=== PATIENT | male | born 1940 | race Caucasian/White ===

== ENCOUNTER 2019-07-20 11:45 | Outpatient (CLI) | payer MEDICARE, OTHER, SELFPAY ==
[2019-07-20 13:21] LABS: Basophils Absolute Auto 0.1 K/mm3 (0.0-0.1); Basophils Percent Auto 1.1 % (0.2-1.2); Eosinophils Absolute Auto 0.3 K/mm3 (0-0.3); Eosinophils Percent Auto 3.6 % (0-4.4); Hematocrit 42.1 % (42.0-52.0); Hemoglobin 14.5 g/dL (14.0-18.0); Immature Granulocyte Absolute 0.02 K/mm3 (0.00-0.031); Immature Granulocyte Percent A 0.3 % (0-0.5); Lymphocytes Absolute Auto 1.36 K/mm3 (0.9-3.2); Lymphocytes Percent Auto 19.4 % (18.3-44.2); Mean Corpuscular HGB Conc 34.4 g/dl (32-36); Mean Platelet Volume 11.2 fl (7.4-10.4); Monocytes Absolute Auto 0.6 K/mm3 (0.1-0.6); Monocytes Percent Auto 8.7 % (2.6-8.5); Neutrophils Absolute Auto 4.7 K/mm3 (1.3-6.7); Neutrophils Percent Auto 66.9 % (45.5-73.1); Platelet Count Result 241 k/mm3 (150-375); Red Blood Count 4.84 M/mm3 (4.6-6.20)
== END 2019-07-20 11:46 | disposition home or self-care (01) ==
PROVIDERS: PCP Internal Medicine; Visit Provider Internal Medicine
DX: D64.9 Anemia, unspecified (principal)
CPT/HCPCS: 36415; 85025

== ENCOUNTER 2020-01-23 11:42 | Outpatient (CLI) | payer MEDICARE, OTHER, SELFPAY ==
[2020-01-23 12:27] LABS: Anion Gap 8 mmol/L (8-16); Blood Urea Nitrogen 20 mg/dL (9-20); Calcium 10.1 mg/dL (8.4-10.2); Carbon Dioxide 32 mmol/L (22-30); Chloride 101 mmol/L (98-107); Estimated Glomerular Filt Rate > 60; Glucose 95 mg/dL (75-110); Potassium 4.1 mmol/L (3.4-5.0); Sodium 141 mmol/L (137-145)
== END 2020-01-23 11:43 | disposition home or self-care (01) ==
PROVIDERS: PCP Internal Medicine; Visit Provider Internal Medicine
DX: I10 Essential (primary) hypertension (principal)
CPT/HCPCS: 36415; 80048

== ENCOUNTER 2020-08-30 08:43 | Outpatient (CLI) | payer MEDICARE, SELFPAY ==
--- NOTE | ~2020-08-30 | US_ITS ---
EXAMINATION: US art doppler w press LE BI DATE: 08/30/2020 09:39 INDICATION: Peripheral vascular disease. TECHNIQUE: Segmental pressures and plethysmographic and Doppler waveforms of the brachial and lower e xtremity arteries were obtained. COMPARISON: None. FINDINGS: Right and left brachial artery pressures of 139 mm Hg and 138 mm Hg, respectively, are concordant (no rmal difference <= 30 mmHg). The right and left high-thigh pressure indices are 1.07 and 0.97, respec tively (normal > 1.2). The right ankle-brachial index (TRUDY) is 1.04 (normal >= 0.9-1). The right great toe-brachial index (T BI) is 0.72 (normal >= 0.6-0.8). The right lower extremity segmental pressure gradients are increased between the right ebvgj-rgy-mvch popliteal artery and the arteries at the ankle (normal gradients <= 20-30 mmHg between adjacent levels on the same leg or the same levels on the two legs). Arterial wav eforms are biphasic with brisk systolic upstrokes throughout. The left TRUDY is 1.06. The left TBI is 0.81. The left lower extremity segmental pressure gradients are normal. Arterial waveforms biphasic with brisk systolic upstrokes throughout. IMPRESSION: 1. Normal TRUDY's and TBI's bilaterally. No significant occlusive disease. Reviewed, dictated and finalized at location A.
== END 2020-08-30 08:44 | disposition home or self-care (01) ==
PROVIDERS: PCP Internal Medicine; Visit Provider Internal Medicine
DX: I73.9 Peripheral vascular disease, unspecified (principal)
CPT/HCPCS: 93923

== ENCOUNTER 2021-01-20 10:38 | Outpatient (CLI) | payer MEDICARE, SELFPAY ==
[2021-01-20 11:06] LABS: Alanine Aminotransferase 13 U/L (4-50); Albumin Level 4.7 g/dL (3.5-5.1); Alkaline Phosphatase 55 U/L (38-126); Anion Gap 9 mmol/L (8-16); Aspartate Amino Transferase 24 U/L (17-59); Blood Urea Nitrogen 19 mg/dL (9-20); Calcium 10.1 mg/dL (8.4-10.2); Carbon Dioxide 29 mmol/L (22-30); Chloride 103 mmol/L (98-107); Estimated Glomerular Filt Rate > 60; Glucose 115 mg/dL (65-110); Potassium 3.9 mmol/L (3.4-5.0); Sodium 141 mmol/L (137-145)
== END 2021-01-20 10:39 | disposition home or self-care (01) ==
LOC: ANHLAB 10:41
PROVIDERS: PCP Internal Medicine; Visit Provider Internal Medicine
DX: I10 Essential (primary) hypertension (principal); Z79.899 Other long term (current) drug therapy
CPT/HCPCS: 36415; 80053

== ENCOUNTER 2021-08-06 08:23 | Outpatient (CLI) | payer MEDICARE, SELFPAY ==
[2021-08-06 08:52] LABS: Alanine Aminotransferase 11 U/L (4-50); Albumin Level 4.3 g/dL (3.5-5.1); Alkaline Phosphatase 59 U/L (38-126); Anion Gap 6 mmol/L (8-16); Aspartate Amino Transferase 28 U/L (17-59); Bilirubin,Total 1.1 mg/dL (0.2-1.3); Blood Urea Nitrogen 17 mg/dL (9-20); Carbon Dioxide 31 mmol/L (22-30); Chloride 103 mmol/L (98-107); Estimated Glomerular Filt Rate > 60; Glucose 111 mg/dL (65-110); Potassium 3.4 mmol/L (3.4-5.0); Sodium 140 mmol/L (137-145)
== END 2021-08-06 08:24 | disposition home or self-care (01) ==
PROVIDERS: PCP Internal Medicine; Visit Provider Nurse Practitioner
DX: I10 Essential (primary) hypertension (principal)
CPT/HCPCS: 36415; 80053

== ENCOUNTER 2021-08-08 08:25 | Outpatient (CLI) | payer MEDICARE, SELFPAY ==
[2021-08-08 08:58] LABS: Basophils Absolute Auto 0.1 K/mm3 (0.0-0.1); Basophils Percent Auto 1.3 % (0.2-1.2); Eosinophils Absolute Auto 0.3 K/mm3 (0-0.3); Eosinophils Percent Auto 6.4 % (0-4.4); Hematocrit 43.6 % (42.0-52.0); Immature Granulocyte Absolute 0.02 K/mm3 (0.00-0.031); Immature Granulocyte Percent A 0.4 % (0-0.5); Lymphocytes Absolute Auto 1.33 K/mm3 (0.9-3.2); Lymphocytes Percent Auto 25.1 % (18.3-44.2); Mean Corpuscular HGB Conc 34.4 g/dl (32-36); Mean Corpuscular Hemoglobin 30.5 pg (26-34); Mean Corpuscular Volume 88.6 fl (80-100); Mean Platelet Volume 10.7 fl (7.4-10.4); Monocytes Absolute Auto 0.5 K/mm3 (0.1-0.6); Monocytes Percent Auto 9.1 % (2.6-8.5); Neutrophils Absolute Auto 3.1 K/mm3 (1.3-6.7); Neutrophils Percent Auto 57.7 % (45.5-73.1); Platelet Count Result 185 k/mm3 (150-375); Red Blood Count 4.92 M/mm3 (4.6-6.20); Red Cell Distribution Width 12.6 % (11.5-14.5); White Blood Count 5.3 K/mm3 (4.5-10.0)
[2021-08-08 09:47] LABS: Thyroid Stimulating Hormone 0.291 uIU/mL (0.465-4.680)
== END 2021-08-08 08:26 | disposition home or self-care (01) ==
LOC: ANHLAB 08:27
PROVIDERS: PCP Internal Medicine; Visit Provider Internal Medicine
DX: R53.83 Other fatigue (principal)
CPT/HCPCS: 36415; 84443; 85025

== ENCOUNTER 2022-02-11 08:06 | Outpatient (CLI) | payer MEDICARE, SELFPAY ==
[2022-02-11 08:41] LABS: Alanine Aminotransferase 15 U/L (6-50); Albumin Level 4.6 g/dL (3.5-5.1); Alkaline Phosphatase 61 U/L (38-126); Anion Gap 9 mmol/L (8-16); Aspartate Amino Transferase 25 U/L (17-59); Bilirubin,Total 1.3 mg/dL (0.2-1.3); Blood Urea Nitrogen 22 mg/dL (9-20); Calcium 9.6 mg/dL (8.4-10.2); Carbon Dioxide 28 mmol/L (22-30); Chloride 105 mmol/L (98-107); Cholesterol 166 mg/dL (0-200); Estimated Glomerular Filt Rate 58; Glucose 106 mg/dL (65-110); HDL Direct 53 mg/dL; Potassium 3.5 mmol/L (3.4-5.0); Sodium 142 mmol/L (137-145); Triglycerides 97 mg/dL (<150)
[2022-02-11 08:52] LABS: LDL Cholesterol Direct 84 mg/dL
== END 2022-02-11 08:07 | disposition home or self-care (01) ==
PROVIDERS: PCP Internal Medicine; Visit Provider Internal Medicine
DX: I10 Essential (primary) hypertension (principal); Z13.220 Encounter for screening for lipoid disorders; Z79.899 Other long term (current) drug therapy
CPT/HCPCS: 36415; 80053; 80061

== ENCOUNTER 2022-08-27 10:31 | Outpatient (CLI) | payer MEDICARE, SELFPAY ==
[2022-08-27 11:21] LABS: Alanine Aminotransferase 13 U/L (6-50); Albumin Level 4.3 g/dL (3.5-5.1); Alkaline Phosphatase 67 U/L (38-126); Anion Gap 6 mmol/L (8-16); Aspartate Amino Transferase 23 U/L (17-59); Bilirubin,Total 0.7 mg/dL (0.2-1.3); Blood Urea Nitrogen 29 mg/dL (9-20); Calcium 9.5 mg/dL (8.4-10.2); Carbon Dioxide 30 mmol/L (22-30); Chloride 104 mmol/L (98-107); Cholesterol 151 mg/dL (0-200); Estimated Glomerular Filt Rate 48; Glucose 89 mg/dL (65-110); HDL Direct 51 mg/dL; Potassium 4.1 mmol/L (3.4-5.0); Sodium 140 mmol/L (137-145); Triglycerides 100 mg/dL (<150)
[2022-08-27 11:32] LABS: LDL Cholesterol Direct 77 mg/dL
[2022-08-27 11:50] LABS: Thyroid Stimulating Hormone 0.052 uIU/mL (0.465-4.680)
== END 2022-08-27 10:32 | disposition home or self-care (01) ==
LOC: ANHLAB 10:32
PROVIDERS: PCP Internal Medicine; Visit Provider Internal Medicine
DX: E78.5 Hyperlipidemia, unspecified (principal); I10 Essential (primary) hypertension; R79.89 Other specified abnormal findings of blood chemistry; Z79.899 Other long term (current) drug therapy
CPT/HCPCS: 36415; 80053; 80061; 84443

== ENCOUNTER 2022-09-03 09:23 | Outpatient (CLI) | payer MEDICARE, SELFPAY ==
[2022-09-07 04:06] LABS: Thyroid Peroxidase Antibodies 168 IU/mL (<9)
== END 2022-09-03 09:24 | disposition home or self-care (01) ==
LOC: ANHLAB 09:24
PROVIDERS: PCP Family Medicine; Visit Provider Family Medicine
DX: N52.9 Male erectile dysfunction, unspecified (principal); M15.0 Primary generalized (osteo)arthritis; C67.9 Malignant neoplasm of bladder, unspecified; R53.83 Other fatigue; R94.6 Abnormal results of thyroid function studies
CPT/HCPCS: 36415; 84436; 84443; 86376

== ENCOUNTER 2023-02-26 13:18 | Outpatient (CLI) | payer MEDICARE, SELFPAY ==
[2023-02-26 15:28] LABS: Alanine Aminotransferase 12 U/L (6-50); Albumin Level 4.4 g/dL (3.5-5.1); Alkaline Phosphatase 69 U/L (38-126); Anion Gap 6 mmol/L (8-16); Aspartate Amino Transferase 21 U/L (17-59); Bilirubin,Total 0.7 mg/dL (0.2-1.3); Blood Urea Nitrogen 25 mg/dL (9-20); Calcium 9.8 mg/dL (8.4-10.2); Carbon Dioxide 33 mmol/L (22-30); Chloride 101 mmol/L (98-107); Estimated Glomerular Filt Rate 53; Glucose 94 mg/dL (65-110); Potassium 3.3 mmol/L (3.4-5.0); Sodium 140 mmol/L (137-145)
[2023-02-26 15:46] LABS: Free T4 Free Thyroxine 0.96 ng/mL (0.78-2.19)
== END 2023-02-26 13:19 | disposition home or self-care (01) ==
PROVIDERS: PCP Family Medicine; Visit Provider Family Medicine
DX: C67.9 Malignant neoplasm of bladder, unspecified (principal); R25.2 Cramp and spasm; I10 Essential (primary) hypertension; R79.89 Other specified abnormal findings of blood chemistry
CPT/HCPCS: 36415; 80053; 84439; 84443

== ENCOUNTER 2023-06-04 10:10 | Outpatient (CLI) | payer MEDICARE, SELFPAY ==
[2023-06-04 10:46] LABS: Basophils Percent Auto 0.6 % (0.2-1.2); Eosinophils Absolute Auto 0.4 K/mm3 (0-0.3); Eosinophils Percent Auto 7.2 % (0-4.4); Hematocrit 40.1 % (42.0-52.0); Hemoglobin 12.7 g/dL (14.0-18.0); Immature Granulocyte Absolute 0.02 K/mm3 (0.00-0.031); Immature Granulocyte Percent A 0.4 % (0-0.5); Lymphocytes Absolute Auto 0.63 K/mm3 (0.9-3.2); Lymphocytes Percent Auto 12.9 % (18.3-44.2); Mean Corpuscular HGB Conc 31.7 g/dl (32-36); Mean Corpuscular Volume 94.6 fl (80-100); Mean Platelet Volume 9.7 fl (7.4-10.4); Monocytes Absolute Auto 0.5 K/mm3 (0.1-0.6); Monocytes Percent Auto 10.5 % (2.6-8.5); Neutrophils Absolute Auto 3.3 K/mm3 (1.3-6.7); Neutrophils Percent Auto 68.4 % (45.5-73.1); Platelet Count Result 217 k/mm3 (150-375); Red Blood Count 4.24 M/mm3 (4.6-6.20); Red Cell Distribution Width 13.2 % (11.5-14.5); White Blood Count 4.9 K/mm3 (4.5-10.0)
[2023-06-04 11:05] LABS: Alanine Aminotransferase 20 U/L (6-50); Albumin Level 3.9 g/dL (3.5-5.1); Alkaline Phosphatase 61 U/L (38-126); Anion Gap 4 mmol/L (8-16); Aspartate Amino Transferase 31 U/L (17-59); Bilirubin,Total 0.8 mg/dL (0.2-1.3); Blood Urea Nitrogen 24 mg/dL (9-20); Calcium 9.5 mg/dL (8.4-10.2); Carbon Dioxide 33 mmol/L (22-30); Chloride 104 mmol/L (98-107); Cholesterol 165 mg/dL (0-200); Estimated Glomerular Filt Rate 58; Glucose 98 mg/dL (65-110); HDL Direct 57 mg/dL; Sodium 141 mmol/L (137-145); Triglycerides 83 mg/dL (<150)
[2023-06-04 11:16] LABS: LDL Cholesterol Direct 88 mg/dL
[2023-06-04 11:35] LABS: Thyroid Stimulating Hormone 0.801 uIU/mL (0.465-4.680)
== END 2023-06-04 10:11 | disposition home or self-care (01) ==
LOC: ANHLAB 10:13
PROVIDERS: PCP Family Medicine; Visit Provider Family Medicine
DX: C67.9 Malignant neoplasm of bladder, unspecified (principal); I10 Essential (primary) hypertension; N52.9 Male erectile dysfunction, unspecified; R79.89 Other specified abnormal findings of blood chemistry
CPT/HCPCS: 36415; 80053; 80061; 84443; 85025

== ENCOUNTER 2023-10-27 14:02 | Outpatient (CLI) | payer MEDICARE, SELFPAY ==
--- NOTE | ~2023-10-27 | XR_ITS ---
XR ankle RT min 3V Ordering provider: Yumiko Solis APRN History: . W19.XXXA - FALL WEDNESDAY, DIFFUSE PAIN AND SWELLING . Comparison: None. FINDINGS: BONES: Fracture of the medial malleolus. Fracture of the lateral malleolus. Bony fragment also seen i n the medial aspect of the fourth which may be from the talus or from the medial malleolus. JOINT SPACES: Normal. SOFT TISSUES: Normal. Calcaneal spur. IMPRESSION: Bimalleolar fracture. Possible fracture in the medial aspect of the right foot may be from the talus.. Reviewed, dictated and finalized at location A. IMPRESSION: Bimalleolar fracture. Possible fracture in the medial aspect of the right foot may be from the talus. .
--- NOTE | ~2023-10-27 | XR_ITS ---
XR hip RT 2V w AP pelvis 10/27/2023 15:35 Indication: Right hip pain after fall Procedure: AP pelvis and 2 views right hip Comparison: No prior studies for comparison. Findings: There is mild-moderate osteoarthritis of the hips. No fracture or traumatic malalignment. T here is right internal ureteral stent. There is lower lumbar spondylosis. There is mild osteitis pubi s. Impression: 1: Mild-moderate osteoarthritis of the hips. Reviewed, dictated and finalized at location B. Impression: 1: Mild-moderate osteoarthritis of the hips.
--- NOTE | ~2023-10-27 | XR_ITS ---
XR knee RT min 4V Ordering provider: Yumiko Solis APRN History: . W19.XXXA - FALL WEDNESDAY, DIFFUSE PAIN AND SWELLING . Comparison: None. FINDINGS: BONES: Small bony fragment seen near to the medial tibial plateau which indicate a fracture. Osteopen ia. JOINT SPACES: Chondrocalcinosis. SOFT TISSUES: Soft tissue swelling over the medial knee joint. IMPRESSION: Fracture in the medial tibial plateau area. Evaluation for tenderness in the area is advised. Reviewed, dictated and finalized at location A. IMPRESSION: Fracture in the medial tibial plateau area. Evaluation for tenderness in the ar ea is advised.
== END 2023-10-27 14:03 | disposition home or self-care (01) ==
LOC: ANHIMG 14:03
PROVIDERS: PCP Family Medicine; Visit Provider Nurse Practitioner Family
DX: M25.471 Effusion, right ankle (principal); S82.141A Displaced bicondylar fracture of right tibia, initial encounter for closed fracture; S82.841A Displaced bimalleolar fracture of right lower leg, initial encounter for closed fracture; M16.0 Bilateral primary osteoarthritis of hip; W19.XXXA Unspecified fall, initial encounter
CPT/HCPCS: 73502; 73564; 73610

== ENCOUNTER 2023-10-28 16:05 | Emergency (ER) | payer MEDICARE, SELFPAY ==
--- NOTE | ~2023-10-28 | CT_ITS ---
EXAMINATION: CT knee RT wo con DATE: 10/28/2023 22:08 INDICATION: Possible right tibial plateau fracture post fall TECHNIQUE: High resolution computed tomography (CT) of the right knee was performed without intraveno us contrast. Additional sagittal and coronal reconstructions were performed. Automated exposure contr ol and iterative reconstruction technique were employed. The dose-length product was 571.61 mGy-cm. COMPARISON: Right knee radiographs dated 10/27/2023 FINDINGS: Alignment is normal. No fracture. There is chondrocalcinosis at the medial and lateral compartments. The chondrocalcinosis involves the menisci with medial extrusion of the medial meniscus suggesting a likely medial meniscal tear. The joint spaces appear relatively preserved on the nonweightbearing ronny ging but with small marginal osteophytes consistent with at least mild tricompartmental osteoarthriti s. Subarticular cystlike change along the medial and posterior margins of the medial tibial plateau s uggesting overlying high-grade chondromalacia. There are multiple loose osteochondral bodies within a posteromedial ganglion cyst which tracks caudally along the pes anserinus. No right knee joint effus ion. Mild soft tissue edema about the right knee including prepatellar edema.. IMPRESSION: 1. No fracture or right knee joint effusion. 2. Chondrocalcinosis suggesting medial extrusion and likely tear of the medial meniscus. 3. At least mild tricompartmental osteoarthritis at the right knee with subarticular cystlike change suggesting high-grade chondral malacia along the posterior and medial aspect of the medial tibial andrzej teau. Reviewed, dictated and finalized at location A. IMPRESSION: 1. No fracture or right knee joint effusion. 2. Chondrocalcinosis suggesting medial extrusion and likely tear of the medial meniscus. 3. At least mild tricompartmental osteoarthritis at the right knee with subarti cular cystlike change suggesting high-grade chondral malacia along the posterio r and medial aspect of the medial tibial plateau.
--- NOTE | ~2023-10-28 | CT_ITS ---
EXAMINATION: CT ankle RT wo con, CT foot RT wo con DATE: 10/28/2023 22:08 INDICATION: Bimalleolar fracture at the right ankle post fall TECHNIQUE: 1. High resolution computed tomography (CT) of the right ankle was performed without intravenous cont rast. Additional sagittal and coronal reconstructions were performed. Automated exposure control and iterative reconstruction technique were employed. The dose-length product was 468.38 mGy-cm. 2. High resolution computed tomography (CT) of the right foot was performed without intravenous contr ast. Additional sagittal and coronal reconstructions were performed. Automated exposure control and i terative reconstruction technique were employed. The dose-length product was 455.62 mGy-cm. COMPARISON: Radiographs dated 10/27/2023 FINDINGS: Right ankle: Nondisplaced oblique fracture of the lateral malleolus which extends to the medial cortex at the leve l of the tibiotalar joint line consistent with a Mccloud type B injury pattern. There is a very small m ildly distracted avulsion fracture fragment arising from the medial margin of the anterior tibial andrzej fond and at the footplate of the anterior inferior tibiofibular ligament. Nondisplaced fracture exten ding obliquely across the anterior aspect of the medial tibial plateau. Alignment remains essentially anatomic with a congruent ankle mortise. No fracture of the posterior malleolus or talar dome. There is prominent soft tissue swelling about the ankle. Right foot: Bone alignment is normal. No fracture. Polyarticular osteoarthritis in the right foot, moderate sever ity at the first metatarsophalangeal joint and mild at majority the remaining joints in the right koby t. Cortical erosions with overhanging edges at the medial head of the first metatarsal which can be s een in setting of gout. Prominent enthesopathic ossification at the tibialis posterior tendon both at the navicular insertion as well as along the portion of the tendon extending towards the plantar asp ect of the cuneiforms. Additional minimal enthesopathic consultation at the distal Achilles tendon. S mall plantar calcaneal spur. IMPRESSION: 1. Nondisplaced bimalleolar fracture at the right ankle which includes a very small avulsion fracture of the tibial insertion of the anterior-inferior tibiofibular ligament. 2. Mild to moderate polyarticular osteoarthritis in the right foot with no acute osseous abnormality. 3. Chronic appearing erosions at the medial head of the first metatarsal with location and appearance typical for gout. This could also account for the prominent enthesopathic calcification is at the di stal tibialis posterior tendon. Reviewed, dictated and finalized at location A. IMPRESSION: 1. Nondisplaced bimalleolar fracture at the right ankle which includes a very s mall avulsion fracture of the tibial insertion of the anterior-inferior tibiofi bular ligament. 2. Mild to moderate polyarticular osteoarthritis in the right foot with no acut e osseous abnormality. 3. Chronic appearing erosions at the medial head of the first metatarsal with l ocation and appearance typical for gout. This could also account for the promin ent enthesopathic calcification is at the distal tibialis posterior tendon.
[2023-10-28 16:16] VITALS: BP 112/60; PULSE 75; RESP 14; TEMP 36.3; O2SAT 100
--- NOTE | 2023-10-28 21:33 | ED.LOWEXIN ---
HPI - Extremity Injury (Lower) General Chief Complaint: Extremity Injury, Lower Stated Complaint: states he has broken R ankle Time Seen by Provider: 10/28/23 21:16 Source: patient and family Mode of arrival: ambulatory Limitations: no limitations History of Present Illness HPI Narrative: PATIENT HAD A FALL 6 DAYS AGO COMPLAINING OF RIGHT ANKLE AND RIGHT KNEE PAIN. PATIENT HAD X-RAY ORDERED FOR THE RIGHT KNEE AND RIGHT ANKLE BY HIS FAMILY PHYSICIAN AND THE RESULT SHOWED RIGHT TIBIAL PLATEAU FRACTURE, BIMALLEOLAR FRACTURE, POSSIBLE TALUS FRACTURE. PATIENT IS STILL WALKING AND STANDING ON HIS FEET, WAS TOLD BY HIS FAMILY PHYSICIAN TO GO TO THE EMERGENCY ROOM TO MEET DR. SCHWAB FOR POSSIBLE MANAGEMENT Related Data Allergies Allergy/AdvReac Type Severity Reaction Status Date / Time milk AdvReac Mild diarrhea Verified 10/28/23 16:06 eggs AdvReac Mild diarrhea Uncoded 10/28/23 16:06 Review of Systems Review of Systems: All systems reviewed & are unremarkable except as noted in HPI and below PMFSH Past Medical History Medical History Bladder cancer Family History Family History Father Family history of cardiovascular disease Mother Family history of Parkinson's disease Family history of cardiovascular disease Sibling Family history of Parkinson's disease Social History Social History Smoking packs per day: 2 Smoking cigarettes per day: 40.0 Years smoked: 26 Smoking pack-years: 52.00 Smoking status: Former smoker Tobacco type: cigarettes Second hand tobacco smoke exposure: Yes Smoking end date: 05/10/90 Alcohol intake: current Alcohol use details: social/ very seldom Substance use: never Substance use type: does not use Do You Feel Safe in your Home?: Yes Lack of Transportation: No Lack of Food: Never True Current Housing: I Have Housing Concerned About Future Housing: No Difficulty Paying Gas/Electric Bills: No Difficulty Paying for Meds: No Currently Unemployed: No Education: Trade/Vocational Certificate Difficulty w/ Childcare or Family Care: No Sexual Orientation (if Verbalized by the Patient): Straight or Heterosexual Spiritual care concerns: No Agree to blood products: Yes Exam Narrative: GENERAL APPEARANCE: WELL-DEVELOPED, WELL-NOURISHED SKIN: NORMAL COLOR HEAD: NORMOCEPHALIC, NONTRAUMATIC EYES: CLEAR CONJUNCTIVA ENT: OROPHARYNX NORMAL, EARS NORMAL, NOSE NORMAL NECK: SUPPLE, NONTENDER CHEST AND RESPIRATORY: AIRWAY PATENT, NO RESPIRATORY DISTRESS, NO ACCESSORY MUSCLE USE HEART: REGULAR RATE/RHYTHM ABDOMEN: SOFT, NONTENDER, NO ORGANOMEGALY, QUIET BOWEL SOUNDS VASCULAR: NORMAL PERIPHERAL PULSES, NORMAL CAPILLARY REFILL. MUSCULOSKELETAL: SLIGHT DIFFUSE TENDERNESS OF THE RIGHT ANKLE AND RIGHT KNEE, NO OBVIOUS DEFORMITY, SLIGHT LIMITED RANGE OF MOTION NEUROLOGIC: ALERT AND ORIENTED ?3, GASOLINE PUMP MECHANIC IS NORMAL TESTED, NO GROSS MOTOR DEFICIT Course Vital Signs Vital signs: Vital Signs Temperature 36.3 C L 10/28/23 16:16 Pulse Rate 75 10/28/23 16:16 Respiratory Rate 14 10/28/23 16:16 Blood Pressure 112/60 10/28/23 16:16 Pulse Oximetry 100 10/28/23 16:16 Oxygen Delivery Room Air 10/28/23 16:16 Temperature 36.3 C L 10/28/23 16:16 Pulse Rate 76 10/28/23 22:19 Respiratory Rate 18 10/28/23 22:19 Blood Pressure 165/76 H 10/28/23 22:19 Pulse Oximetry 98 10/28/23 22:19 Oxygen Delivery Room Air 10/28/23 16:16 MDM - Extremity Injury (Lower) MDM Narrative Medical decision steven
[2023-10-28 22:19] VITALS: BP 165/76; PULSE 76; RESP 18; O2SAT 98
[2023-10-28 23:39] VITALS: BP 142/69; PULSE 64; RESP 18; O2SAT 100
== END 2023-10-28 23:39 | disposition home or self-care (01) ==
PROVIDERS: Emergency Provider Emergency Medicine; PCP Family Medicine
DX: S82.844A Nondisplaced bimalleolar fracture of right lower leg, initial encounter for closed fracture (principal); Z85.51 Personal history of malignant neoplasm of bladder; Z87.891 Personal history of nicotine dependence; M19.071 Primary osteoarthritis, right ankle and foot; M85.871 Other specified disorders of bone density and structure, right ankle and foot; M11.261 Other chondrocalcinosis, right knee; M17.11 Unilateral primary osteoarthritis, right knee; W19.XXXA Unspecified fall, initial encounter
CPT/HCPCS: 29515; 73700; 99284

== ENCOUNTER 2023-12-18 10:34 | Outpatient (CLI) | payer MEDICARE, SELFPAY ==
[2023-12-18 11:14] LABS: Hematocrit 33.9 % (42.0-52.0); Hemoglobin 11.3 g/dL (14.0-18.0); Mean Corpuscular HGB Conc 33.3 g/dl (32-36); Mean Corpuscular Volume 89.9 fl (80-100); Mean Platelet Volume 10.1 fl (7.4-10.4); Platelet Count Result 217 k/mm3 (150-375); Red Blood Count 3.77 M/mm3 (4.6-6.20); Red Cell Distribution Width 13.3 % (11.5-14.5)
[2023-12-18 11:26] LABS: Alanine Aminotransferase 18 U/L (6-50); Alkaline Phosphatase 107 U/L (38-126); Anion Gap 9 mmol/L (4-12); Aspartate Amino Transferase 31 U/L (17-59); Bilirubin,Total 0.6 mg/dL (0.2-1.3); Blood Urea Nitrogen 27 mg/dL (9-20); Calcium 9.6 mg/dL (8.4-10.2); Carbon Dioxide 29 mmol/L (22-30); Chloride 101 mmol/L (98-107); Estimated Glomerular Filt Rate 41; Glucose 111 mg/dL (65-110); Sodium 139 mmol/L (137-145)
[2023-12-18 11:30] LABS: Iron 65 ug/dL (49-181)
[2023-12-18 11:39] LABS: Percent Iron Saturation 27 % (20-50)
[2023-12-18 11:48] LABS: Free T4 Free Thyroxine 1.25 ng/mL (0.78-2.19)
[2023-12-18 11:55] LABS: Thyroid Stimulating Hormone 0.269 uIU/mL (0.465-4.680)
[2023-12-20 16:13] LABS: Ionized Calcium 5.2 mg/dL (4.7-5.5)
== END 2023-12-18 10:35 | disposition home or self-care (01) ==
LOC: ANHLAB 10:38
PROVIDERS: PCP Family Medicine; Visit Provider Family Medicine
DX: C67.9 Malignant neoplasm of bladder, unspecified (principal); D64.9 Anemia, unspecified; I10 Essential (primary) hypertension; M15.0 Primary generalized (osteo)arthritis; N52.9 Male erectile dysfunction, unspecified; R25.2 Cramp and spasm; R79.89 Other specified abnormal findings of blood chemistry; Z79.899 Other long term (current) drug therapy; E83.52 Hypercalcemia; S82.841A Displaced bimalleolar fracture of right lower leg, initial encounter for closed fracture
CPT/HCPCS: 36415; 80053; 82330; 82607; 83540; 83550; 84439; 84443; 85027

== ENCOUNTER 2024-02-10 11:16 | Outpatient (CLI) | payer MEDICARE, SELFPAY ==
[2024-02-10 11:53] LABS: Hematocrit 36.1 % (42.0-52.0); Hemoglobin 11.8 g/dL (14.0-18.0); Mean Corpuscular HGB Conc 32.7 g/dl (32-36); Mean Corpuscular Hemoglobin 30.7 pg (26-34); Mean Platelet Volume 10.5 fl (7.4-10.4); Platelet Count Result 176 k/mm3 (150-375); Red Blood Count 3.84 M/mm3 (4.6-6.20); Red Cell Distribution Width 15.3 % (11.5-14.5); White Blood Count 5.8 K/mm3 (4.5-10.0)
[2024-02-10 12:09] LABS: Complement C3 85 mg/dL (88-165)
[2024-02-10 12:27] LABS: Albumin Level 3.8 g/dL (3.5-5.1); Anion Gap 5 mmol/L (4-12); Blood Urea Nitrogen 18 mg/dL (9-20); Calcium 9.3 mg/dL (8.4-10.2); Carbon Dioxide 30 mmol/L (22-30); Chloride 104 mmol/L (98-107); Creatine Kinase 78 U/L (55-170); Estimated Glomerular Filt Rate 52; Glucose 97 mg/dL (65-110); Phosphorus 3.3 mg/dL (2.5-4.5); Potassium 4.1 mmol/L (3.4-5.0); Sodium 139 mmol/L (137-145)
[2024-02-10 12:35] LABS: Add Urine Microscopic? YES; Appearance Urine Clear (Clear); Bacteria Urine None Seen /hpf; Bilirubin Urine Negative (Negative); Blood Urine 2+ (Negative); Color Urine Yellow (Yellow); Glucose Urine UA Negative (Negative); Ketones Urine Negative (Negative); Leukocyte Esterase Ur 1+ LEU/UL (Negative); Nitrate Urine Negative (Negative); Non Pathogenic Casts 0-2; Protein Urine 2+ mg/dL (Negative); RBC Urine 21-50 /hpf (0-2); Squamous Epithelial Cell Urine None Seen /hpf (Few); Urobilinogen Urine 0.2 mg/dL (<2.0)
[2024-02-10 12:37] LABS: Parathyroid Intact 18.6 pg/mL (14.5-75.2)
[2024-02-10 12:49] LABS: Creatinine Urine 140.6 mg/dL; Total Protein Urine Random 147 mg/dL; Ur Ttl Prot Creatinine Ratio 1.05 mg/mg (0-0.20)
[2024-02-10 12:58] LABS: Thyroid Stimulating Hormone 0.475 uIU/mL (0.465-4.680)
[2024-02-10 13:03] LABS: Erythrocyte Sedimentation Rate 24 mm/hr (0-20)
[2024-02-11 12:02] LABS: Kappa\\Lambda Light Chains 1.64 (0.26-1.65); Lambda Light Chain 25.6 mg/L (5.7-26.3)
[2024-02-11 15:04] LABS: Complement Total CH50 41 U/mL (31-60)
[2024-02-15 19:44] LABS: Immunofixation, Serum Normal pattern.
== END 2024-02-10 11:17 | disposition home or self-care (01) ==
PROVIDERS: PCP Family Medicine; Visit Provider Internal Medicine Nephrology
DX: N18.31 Chronic kidney disease, stage 3a (principal); E83.52 Hypercalcemia; S82.841A Displaced bimalleolar fracture of right lower leg, initial encounter for closed fracture
CPT/HCPCS: 36415; 80069; 81001; 82550; 82570; 83883; 83970; 84156; 84443; 85027; 85652; 86038; 86039; 86160; 86162; 86334

== ENCOUNTER 2024-02-14 09:49 | Outpatient (CLI) | payer MEDICARE, SELFPAY ==
[2024-02-25 08:31] LABS: Pro/Creat Ratio 942
== END 2024-02-14 09:50 | disposition home or self-care (01) ==
LOC: ANHLAB 09:50
PROVIDERS: PCP Family Medicine; Visit Provider Internal Medicine Nephrology
DX: N18.31 Chronic kidney disease, stage 3a (principal)
CPT/HCPCS: 86335

== ENCOUNTER 2024-02-18 12:35 | Outpatient (CLI) | payer MEDICARE, SELFPAY ==
--- NOTE | ~2024-02-18 | US_ITS ---
EXAM: RENAL ULTRASOUND HISTORY: N18.31 - Chronic kidney disease, stage 3a COMPARISON: None FINDINGS: RIGHT KIDNEY: The right kidney is asymmetrically atrophic measuring 8.3 x 3.5 x 5.8 cm. The thin, atrophic parenchyma of the right kidney is increased in echogenicity. No hydronephrosis or bulky renal calculi. Two foci of decreased echogenicity within the parenchyma of the right kidney, incompletely evaluated on the submitted images. Within the upper pole measuring 14 x 9 mm and within the lower pole measuring 9 x 7 mm. The small focus within the lower pole most certainly represents a simple cyst. The larger focus within the upper pole is indeterminate. Within the proximal collecting system/renal pelvis is what appears to be the proximal portion of the double-J stent is present, although this portion is straight, and not curled as a pigtail would appea r. LEFT KIDNEY: The left kidney is asymmetrically enlarged measuring 10.6 x 4.7 x 5.8 cm. No hydronephrosis or renal calculi. The parenchyma of the left kidney is unremarkable, and of normal caliber. BLADDER: The bladder is distended, with trace mass effect from the prostate gland. The distal pigtail of a (likely) double-J catheter is identified within the base of the right side of the bladder. The undersurface of the wall of the bladder is smooth and unremarkable. IMPRESSION: Asymmetric atrophy of the right kidney with indeterminate parenchymal foci, as detailed above. Likely a right-sided double-J stent present, with the proximal pigtail straight, rather than curled. Either repeat ultrasound examination (with attention to the parenchyma of the right kidney) versus pl ain film evaluation of the abdomen (to document laterality of stent and stent type) versus noncontras t evaluation of the abdomen and pelvis to further evaluate the perirenal soft tissues, specifically o f the right kidney, stent type and stent laterality. Reviewed, dictated and finalized at location A. IMPRESSION: Asymmetric atrophy of the right kidney with indeterminate parenchymal foci, as detailed above. Likely a right-sided double-J stent present, with the proximal pigtail straight , rather than curled. Either repeat ultrasound examination (with attention to the parenchyma of the r ight kidney) versus plain film evaluation of the abdomen (to document lateralit y of stent and stent type) versus noncontrast evaluation of the abdomen and pel vis to further evaluate the perirenal soft tissues, specifically of the right k idney, stent type and stent laterality.
== END 2024-02-18 12:36 | disposition home or self-care (01) ==
LOC: ANHIMG 12:37
PROVIDERS: PCP Family Medicine; Visit Provider Internal Medicine Nephrology
DX: R82.81 Pyuria (principal); N18.31 Chronic kidney disease, stage 3a; Z79.899 Other long term (current) drug therapy
CPT/HCPCS: 76775; 87086